=== PATIENT | female | born 1945 | race Caucasian/White ===

== ENCOUNTER → 2018-03-04 08:57 | Outpatient (CLI) | payer MEDICARE, SELFPAY ==
--- NOTE | 2018-03-04 08:59 | DI.US.S_ITS ---
PROCEDURE: US THYROID INDICATIONS: H/O THYROID NODULES TECHNIQUE: Real-time scanning was performed of the thyroid gland, with image documentation. COMPARISON: [facility], [place], THYROID, 08/17/2014, 10:12. [facility], [place]ROID, 11/13/2013, 13:19. FINDINGS: Right: The right thyroid lobe measures 1.6 x 2.0 x 4.6 cm. In 3 new thyroid nodules are present measuring 4 x 6 x 6 mm and 4 x 6 x 7 mm at the middle third of the gland and 8 x 9 x 13 mm at the lower third of the gland. Previously present middle third nodules have not significantly changed measuring 4 x 8 x 10 mm and 5 x 6 x 7 mm. Left: The left thyroid lobe measures 2.4 x 3.5 x 5.1 cm. A 9 x 11 x 14 mm upper third nodule has not changed. The 2 previously biopsied nodules at the middle and lower third of the gland measure 13 x 24 x 24 mm and 21 x 26 x 32 mm respectively. Isthmus: Isthmus contains 2 small additional nodules measuring 3 x 6 x 7 mm and 3 x 6 x 6 mm. IMPRESSION: 2 right-sided previously present nodules are again seen, 3 new right-sided nodules are present as discussed. At the Isthmus 2 small new nodules are present. Within the left thyroid lobe the previously biopsied lower to nodules have not significantly changed in the upper third nodule which is smaller has not significantly changed. Dictated by: Syd Schmitt M.D. on 03/04/2018 at 13:10 Approved by: Syd Schmitt M.D. on 03/04/2018 at 13:14
[2018-03-04 09:36] LABS: Add Manual Diff / Slide Review NO; Basophils Percent Auto 1.5 % (0-2); Eosinophils Percent Auto 2.5 % (2-4); Hematocrit 40.7 % (36-46); Lymphocytes Percent Auto 34.5 % (25-40); Mean Corpuscular HGB Conc 34.4 % (30-36); Mean Corpuscular Hemoglobin 32.1 PG (26-34); Mean Corpuscular Volume 93.2 fL (80-100); Monocytes Percent Auto 8.6 % (3-14); Neutrophils Absolute Auto 2000 /uL (3000-5900); Neutrophils Percent Auto 52.9 % (50-75); Platelet Count 157 X10^3/uL (150-400); Red Blood Cell Count 4.37 X10^6/uL (4.0-5.2); Red Cell Distribution Width 12.8 % (11.6-14.8); White Blood Cell Count 3.8 X10^3/uL (4.5-11.0)
[2018-03-04 09:57] LABS: Alanine Aminotransferase 23 IU/L (9-52); Albumin 4.4 g/dL (3.5-5.0); Albumin Globulin Ratio 1.4 (1.0-2.8); Alkaline Phosphatase 72 U/L (38-126); Aspartate Aminotransferase 24 IU/L (14-36); BUN Creatinine Ratio 27.1 (6-22); Bilirubin Total 1.8 mg/dL (0.2-1.3); Blood Urea Nitrogen 19 mg/dL (7-17); Calcium 9.3 mg/dL (8.4-10.2); Carbon Dioxide 27 mmol/L (22-32); Chloride 104 mmol/L (98-107); Cholesterol 206 mg/dL (140-199); Estimated Glomerular Filt Rate > 60.0 mL/min (>60); Globulin 3.2 g/dL (1.7-4.1); Glucose 96 mg/dL (80-110); HDL Cholesterol 58 mg/dL (40-60); HEMOLYSIS < 15 (0-50); LDL Cholesterol Calculated 137 mg/dL (<100); Potassium 4.4 mmol/L (3.4-5.1); Sodium 143 mmol/L (137-145); Total Protein 7.6 g/dL (6.3-8.2); Triglycerides 53 mg/dL (35-150)
[2018-03-04 10:24] LABS: Free T3, Triiodothyronine Free 2.81 pg/mL (2.77-5.27); Free T4, Direct Thyroxine 1.01 ng/dL (0.78-2.19)
[2018-03-04 10:38] LABS: Thyroid Stimulating Hormone 2.05 uIU/mL (0.47-4.68)
[2018-03-06 16:05] LABS: Thyroid Peroxidase Antibodies 65 IU/mL (< 9)
== END ==
PROVIDERS: PCP Family Medicine; Visit Provider Internal Medicine
DX: E04.2 Nontoxic multinodular goiter (principal); Z86.2 Personal history of diseases of the blood and blood-forming organs and certain disorders involving the immune mechanism; Z86.39 Personal history of other endocrine, nutritional and metabolic disease
CPT/HCPCS: 36415; 76536; 80053; 80061; 84439; 84443; 84481; 85025; 86376

== ENCOUNTER → 2018-09-28 11:44 | Outpatient (CLI) | payer MEDICARE, SELFPAY ==
--- NOTE | 2018-09-28 12:00 | DI.RAD.S_ITS ---
PROCEDURE: XR FOOT LT MIN 3V INDICATIONS: left foot pain TECHNIQUE: 3 views of the foot were acquired. COMPARISON: None. FINDINGS: Bones: No fractures or dislocations. No suspicious bony lesions. Soft tissues: No tibiotalar joint effusion. Achilles tendon appears normal. IMPRESSION: No acute fracture. No osseous lesion. If symptoms or clinical suspicion for pathology persists, repeat plain films, or advanced imaging (CT, bone scan, or MRI) may be helpful for further assessment. Dictated by: Lloyd Fatima M.D. on 09/28/2018 at 11:15 Approved by: Lloyd Fatima M.D. on 09/28/2018 at 11:16
== END ==
PROVIDERS: PCP Family Medicine; Visit Provider Physician Assistant
DX: M79.672 Pain in left foot (principal)
CPT/HCPCS: 73630

== ENCOUNTER → 2018-11-01 12:34 | Outpatient (CLI) | payer MEDICARE, SELFPAY | PROVIDERS: PCP Family Medicine; Visit Provider Family Medicine | DX: M85.852 Other specified disorders of bone density and structure, left thigh (principal); M85.851 Other specified disorders of bone density and structure, right thigh; Z78.0 Asymptomatic menopausal state | CPT/HCPCS: 77080 ==

== ENCOUNTER → 2018-12-18 11:12 | Outpatient (CLI) | payer MEDICARE, SELFPAY ==
[2018-12-18 12:09] LABS: Basophils Absolute Auto 0 /uL (0-100); Eosinophils Absolute Auto 100 /uL (0-450); Eosinophils Percent Auto 1.8 % (2-4); Lymphocytes Absolute Auto 1600 /uL (1100-4500); Lymphocytes Percent Auto 35.6 % (25-40); Mean Corpuscular HGB Conc 33.4 % (30-36); Mean Corpuscular Hemoglobin 31.6 PG (26-34); Mean Corpuscular Volume 94.6 fL (80-100); Monocytes Absolute Auto 300 /uL (0-900); Monocytes Percent Auto 7.3 % (3-14); Neutrophils Absolute Auto 2400 /uL (1500-7000); Neutrophils Percent Auto 54.3 % (50-75); Platelet Count 148 X10^3/uL (150-400); Red Blood Cell Count 4.44 X10^6/uL (4.0-5.2); Red Cell Distribution Width 12.5 % (11.6-14.8); White Blood Cell Count 4.4 X10^3/uL (4.5-11.0)
[2018-12-18 12:10] LABS: Add Manual Diff / Slide Review SLIDE REVIEW
[2018-12-18 12:13] LABS: Alanine Aminotransferase 26 IU/L (9-52); Albumin 4.5 g/dL (3.5-5.0); Albumin Globulin Ratio 1.4 (1.0-2.8); Alkaline Phosphatase 77 U/L (38-126); Aspartate Aminotransferase 33 IU/L (14-36); BUN Creatinine Ratio 34.3 (6-22); Bilirubin Total 1.7 mg/dL (0.2-1.3); Blood Urea Nitrogen 24 mg/dL (7-17); Calcium 9.8 mg/dL (8.4-10.2); Carbon Dioxide 27 mmol/L (22-32); Chloride 102 mmol/L (98-107); Estimated Glomerular Filt Rate > 60.0 mL/min (>60); Globulin 3.3 g/dL (1.7-4.1); Glucose 99 mg/dL (80-110); HEMOLYSIS < 15 (0-50); Potassium 4.4 mmol/L (3.4-5.1); Sodium 140 mmol/L (137-145); Total Protein 7.8 g/dL (6.3-8.2)
[2018-12-18 12:44] LABS: TSH w/ Reflex to FT4 1.41 uIU/mL (0.47-4.68)
[2018-12-18 12:53] LABS: RBC Morphology Normal Morphology
[2018-12-18 17:38] LABS: Vitamin D 25 Hydroxy (D3) 32.8 ng/mL (30.0-100.0)
== END ==
PROVIDERS: PCP Family Medicine; Visit Provider Family Medicine
DX: M81.0 Age-related osteoporosis without current pathological fracture (principal); E04.2 Nontoxic multinodular goiter
CPT/HCPCS: 36415; 80053; 82306; 84443; 85025

== ENCOUNTER → 2020-08-27 08:08 | Outpatient (CLI) | payer MEDICARE, SELFPAY ==
[2020-08-27 09:00] LABS: Add Manual Diff / Slide Review NO; Basophils Absolute Auto 100 /uL (0-100); Basophils Percent Auto 1.9 % (0-2); Eosinophils Absolute Auto 100 /uL (0-450); Eosinophils Percent Auto 3.9 % (2-4); Hematocrit 39.1 % (36-46); Hemoglobin 12.9 g/dL (12.0-16.0); Lymphocytes Absolute Auto 1300 /uL (1100-4500); Lymphocytes Percent Auto 41.9 % (25-40); Mean Corpuscular HGB Conc 32.9 % (30-36); Mean Corpuscular Hemoglobin 31.2 PG (26-34); Mean Corpuscular Volume 94.8 fL (80-100); Monocytes Absolute Auto 300 /uL (0-900); Monocytes Percent Auto 9.5 % (3-14); Neutrophils Absolute Auto 1400 /uL (1500-7000); Neutrophils Percent Auto 42.8 % (50-75); Platelet Count 120 X10^3/uL (150-400); Red Blood Cell Count 4.12 X10^6/uL (4.0-5.2); Red Cell Distribution Width 12.9 % (11.6-14.8); White Blood Cell Count 3.2 X10^3/uL (4.5-11.0)
[2020-08-27 09:48] LABS: Alanine Aminotransferase 17 IU/L (<35); Albumin Globulin Ratio 1.4 (1.0-2.8); Alkaline Phosphatase 59 U/L (38-126); Aspartate Aminotransferase 29 IU/L (14-36); BUN Creatinine Ratio 23.2 (6-22); Blood Urea Nitrogen 16 mg/dL (7-17); Calcium 9.2 mg/dL (8.4-10.2); Carbon Dioxide 30 mmol/L (22-32); Chloride 103 mmol/L (98-107); Cholesterol 171 mg/dL (140-199); Estimated Glomerular Filt Rate > 60.0 mL/min (>60); Globulin 2.9 g/dL (1.7-4.1); Glucose 95 mg/dL (80-110); HDL Cholesterol 60 mg/dL (40-60); HEMOLYSIS < 15 (0-50); LDL Cholesterol Calculated 102 mg/dL (<100); Sodium 138 mmol/L (137-145); Total Protein 6.9 g/dL (6.3-8.2); Triglycerides 45 mg/dL (35-150)
== END ==
PROVIDERS: PCP Family Medicine; Referring Provider Family Medicine; Visit Provider Family Medicine
DX: E06.3 Autoimmune thyroiditis (principal); D69.6 Thrombocytopenia, unspecified; D72.819 Decreased white blood cell count, unspecified
CPT/HCPCS: 36415; 80053; 80061; 85025

== ENCOUNTER → 2020-10-01 10:26 | Outpatient (CLI) | payer MEDICARE, SELFPAY ==
--- NOTE | 2020-10-01 10:31 | DIET.PN ---
Dietary Progress Note Assessment: 74y F referred to nutrition for help with bloating, constipation, and relaxing the elimination diet she has been following for the past 1.5y on recc of her PCP Khai. Pt Goal: to be able to walk socially with friends without having gas. Pt has a lot of constipation during whole life Sx: within 2-3h of eating offending food, gas starts to build up in stomach, flatulence, often goes days without BM Pt takes 240mg stool softener daily Apr 10, 2019 began elimination diet. Continued to now secondary to covid concerns and not wanting to be a bother to overstressed hospital system. Pt frequently takes beano, lactaid, gas-x (strongest formulation) avoids beans, corn, cruciferous, most fruits and grains including oats drinks 1 cup coffee, 10 glasses water, and herbal tea daily Acceptable Food List: protein foods: chicken, fish, red meat, ham, turkey, mixed nuts (peanuts), mixed nut butter, pistachios?, fruit: oranges, bananas, blueberries, sometimes cantaloupe vegetables: adames peppers, mushrooms, leafy greens, zucchini, cucumbers, tomatoes, avocado, carrots, sweet potatoes, potatoes, squash, green beans, asparagus grain: rice crackers or rice cake, rice, hasn't tried quinoa, corn tortilla Does not hurry when eating, not stressed when eating, chews food well Pt walks 2mi daily and does weight training 3x/w Usual Day: B: 1 c unsweet almond milk, 1/2 banana, 1/2 cup blueberries, 1 c spinach c 2 rice cakes and cup coffee L: deli meat c rice crackers, carrots, orange, slices adames pepper or zucchini D: chicken c salad c sweet potato or regular potato HT: 5'5 WT: 138# Nutrition Diagnosis: 1. poor nutrition quality of life r/t restrictive diet c breakthrough symptoms aeb pt has been on restrictive elimination diet x1.5y prolonged due to global pandemic, pt eating fewer than 50 foods, pt has had lifelong constipation and debilitating bloating/flatulence, pt unable to eat recreationally with others or walk socially secondary to fear of sx and sx manifestation. 2. altered GI function r/t likely intolerance to variety of sugar and fiber types aeb pt reports lifelong constipation reliant on stool softeners, pt has debilitating bloating and flatulence, pt trialing restrictive elimination diet and digestive enzyme routine with moderate sx relief. RD Impression: Pt shows signs of IBS-c and likely some other concurrent intolerance (possibly sucrase isomaltase deficiency, sulfur). Pt has been on restrictive elimination that mostly manages her sx but pt not feeling comfortable social eating or exercising for fear of sx development and manifestation (states, this is embarrassing, others don't need to know my business). Pt willing to be compliant with complex dietary intervention and screens low risk for disordered eating type behaviors. Goal is to systematically test foods in order to make diet as liberal as possible while maintaining low sx manifestations. Pt may need broad digestive enzyme therapy or targeted (sucraid) and may benefit from supplementing with magnesium citrate for better stooling. Will defer to PCP regarding any new supplementation. Interventions: 1. To address sx and lifting restrictive diet, using handout, educated pt on low-FODMAP foods including the food categories, which are low, moderate, and high, with amounts that could be tolerated. Stressed importance that this is not manager intermediate diet, it is meant to systematically identify offending foods and non-offending foods. 2. Discussed protocol of reintroduction. To list top 10 foods she wants back in her diet. To test small amount of one food at a time, over 3 days. If no sx, food is safe. If sx occur, remove food for a while and retest in smaller volume at later date. Pt to journal progress throughout. 3. Discussed low-FODMAP foods which she does not tolerate including many fruits and grains including GF oats. 1/3 of IBS patients have CSID and could possibly explain this added symptomology. Pt does not tolerate sulfur containing foods- cruciferous and eggs, also blurring standard IBS sx relief. Pt instructed to avoid sufur foods for now and fruits/grains that give her trouble for now. Diet Order: low-fodmap with reintroduction phase beginning davina Monitoring/Evaluations: pt has f/u c PCP and will contact RD to schedule further f/u as needed.
== END ==
PROVIDERS: PCP Family Medicine; Referring Provider Family Medicine; Visit Provider Family Medicine
DX: R14.0 Abdominal distension (gaseous) (principal); K59.00 Constipation, unspecified; Z71.3 Dietary counseling and surveillance
CPT/HCPCS: 97802

== ENCOUNTER → 2020-12-10 15:25 | Outpatient (CLI) | payer MEDICARE, SELFPAY ==
[2020-12-14 13:36] LABS: Fecal Immunochemical Test Negative (Negative)
== END ==
PROVIDERS: PCP Family Medicine; Referring Provider Family Medicine; Visit Provider Family Medicine
DX: Z12.11 Encounter for screening for malignant neoplasm of colon (principal)
CPT/HCPCS: 82274

== ENCOUNTER → 2023-08-17 12:26 | Outpatient (CLI) | payer MEDICARE, SELFPAY ==
--- NOTE | 2023-08-17 12:30 | DI.US.S_ITS ---
PROCEDURE: US THYROID INDICATIONS: FOLLOW-UP NODULES TECHNIQUE: Real-time scanning was performed of the thyroid gland, with image documentation. COMPARISON: [facility], [place], US THYROID, 03/04/2018, 9:58. FINDINGS: Thyroid: Right lobe measures 4.8 x 2.4 x 1.7 cm. Left lobe measures 4.9 x 2.2 x 3.4 cm. Isthmus is 5 cm thick. Echotexture is homogeneous. Nodule number: 1 Location: Posterior mid right lobe Size: 2.1 x 1.3 x 1.6 cm compared to 1.3 x 0.9 x 0.8 cm. Composition: Solid Echogenicity: Hypoechoic Shape: wider than tall. Margins: Smooth Echogenic foci: None Total points: 4 ACR TI-RADS category: 4 Nodule number: 2 Location: Left inferior Size: 3.4 x 2.3 x 3.4 cm compared to 3.2 x 2.1 x 2.6 cm. Composition: Solid Echogenicity: Hypoechoic Shape: wider than tall. Margins: Smooth Echogenic foci: None Total points: 4 ACR TI-RADS category: 4 Nodule number: 3 Location: Medial left Size: 2.7 x 1.5 x 2.7 cm compared to 2.4 x 1.3 x 2.4 cm. Composition: Solid Echogenicity: Hypoechoic Shape: wider than tall. Margins: Smooth Echogenic foci: None Total points: 4 ACR TI-RADS category: 4 Nodule number: 4 Location: Anterior right Size: 1.0 by 0.5 x 0.8 cm. Composition: Solid Echogenicity: Hypoechoic Shape: wider than tall. Margins: Smooth Echogenic foci: None Total points: 4 ACR TI-RADS category: 4 IMPRESSION: Lesions 1 through 3 are relatively stable noting minimal interval increase in size of lesion 3. [place] annual follow-up is recommended. Lesion 4 is new. Secondary to size, annual follow-up is recommended. ACR TI-RADS definitions and recommendations: TI-RADS 1 (benign): 0 points. FNA not needed. TI-RADS 2 (not suspicious): 2 points. FNA not needed. TI-RADS 3 (mildly suspicious): 3 points. * FNA if 2.5 cm or larger, follow up if 1.5 cm or larger (at 1, 3, and 5 years). TI-RADS 4 (moderately suspicious): 4-6 points. * FNA if 1.5 cm or larger, follow up if 1 cm or larger (at 1, 2, 3, and 5 years). TI-RADS 5 (highly suspicious): 7 points or more. * FNA if 1 cm or larger, follow up if 0.5 cm or larger (every year for 5 years). Dictated by: Karoline Corral M.D. on 08/17/2023 at 17:18 Approved by: Karoline Corral M.D. on 08/17/2023 at 17:20
--- NOTE | 2023-08-17 12:30 | DI.RAD.S_ITS ---
PROCEDURE: XR DEXA AXIAL SKELETON INDICATIONS: bone density screening COMPARISON: [facility], [place], XR DEXA AXIAL SKELETON, 11/01/2018, 13:05. FINDINGS: Lumbar Spine: Bone mineral density 0.946 g/cm2, T score -0.3, compared to -0.7. Left Hip: Bone mineral density 0.719 g/cm2, T score -1.8, compared to -1.7. Left Femoral Neck: Bone mineral density 0.634 g/cm2, T score -1.9, compared to -1.6. Fracture Risk Calculation (when applicable): 10-year fracture risk of a major osteoporotic fracture 14% and of a hip fracture 3.6%, compared to 14.1% 3.5% respectively on prior exam. (T score greater or equal to -1.0 to: NORMAL) (T score from -1.1 to -2.4: OSTEOPENIA) (T score less than or equal to -2.5: OSTEOPOROSIS) IMPRESSION: Relatively stable appearance of osteopenia in the left hip and femoral neck with minimal interval progression in the femoral neck. Follow-up guidelines as follows: Osteoporosis: Consider a repeat DEXA and Vertebral Fracture Assessment (VFA) exam in 2 years or sooner if medically necessary, to reassess this patient's status. Osteopenia: Consider a repeat DEXA in 2-3 years to reassess this patient's status, or if there is a new clinical indication. Normal: Consider a repeat DEXA in 5 years or sooner, or if there is a new clinical indication. Dictated by: Karoline Corral M.D. on 08/20/2023 at 12:02 Approved by: Karoline Corral M.D. on 08/20/2023 at 12:06
[2023-08-17 14:12] LABS: Add Manual Diff / Slide Review NO; Basophils Absolute Auto 0 /uL (0-100); Eosinophils Absolute Auto 100 /uL (0-450); Eosinophils Percent Auto 1.9 % (2-4); Hematocrit 40.5 % (36-46); Hemoglobin 13.5 g/dL (12.0-16.0); Lymphocytes Absolute Auto 1300 /uL (1100-4500); Lymphocytes Percent Auto 28.2 % (25-40); Mean Corpuscular HGB Conc 33.4 % (30-36); Mean Corpuscular Hemoglobin 31.4 PG (26-34); Mean Corpuscular Volume 93.9 fL (80-100); Monocytes Absolute Auto 400 /uL (0-900); Monocytes Percent Auto 7.8 % (3-14); Neutrophils Absolute Auto 2800 /uL (1500-7000); Neutrophils Percent Auto 61.1 % (50-75); Platelet Count 128 X10^3/uL (150-400); Red Blood Cell Count 4.31 X10^6/uL (4.0-5.2); Red Cell Distribution Width 12.7 % (11.6-14.8); White Blood Cell Count 4.7 X10^3/uL (4.5-11.0)
[2023-08-17 14:26] LABS: Hemoglobin A1C% w Est Avg Glu 5.7 % (4.0-6.0)
[2023-08-17 14:51] LABS: Alanine Aminotransferase 17 IU/L (<35); Albumin 4.6 g/dL (3.5-5.0); Albumin Globulin Ratio 1.5 (1.0-2.8); Alkaline Phosphatase 66 U/L (38-126); Aspartate Aminotransferase 27 IU/L (14-36); BUN Creatinine Ratio 21.4 (6-22); Bilirubin Total 1.9 mg/dL (0.2-1.3); Blood Urea Nitrogen 15 mg/dL (7-17); Calcium 9.4 mg/dL (8.4-10.2); Carbon Dioxide 24 mmol/L (22-32); Chloride 107 mmol/L (98-107); Estimated Glomerular Filt Rate > 60 mL/min (>60); Glucose 99 mg/dL (80-110); HEMOLYSIS < 15 (0-50); Sodium 138 mmol/L (137-145); Total Protein 7.6 g/dL (6.3-8.2)
[2023-08-17 15:04] LABS: Free T3, Triiodothyronine Free 3.26 pg/mL (2.77-5.27); Free T4, Direct Thyroxine 1.56 ng/dL (0.78-2.19)
[2023-08-17 15:08] LABS: Vitamin D 25 Hydroxy (D3) 36.2 ng/mL (30.0-100.0)
[2023-08-17 15:17] LABS: Thyroid Stimulating Hormone 1.43 uIU/mL (0.47-4.68)
== END ==
PROVIDERS: PCP Family Medicine; Referring Provider Family Medicine; Visit Provider Family Medicine
DX: M85.89 Other specified disorders of bone density and structure, multiple sites (principal); R73.9 Hyperglycemia, unspecified; E04.2 Nontoxic multinodular goiter; E06.3 Autoimmune thyroiditis; D69.6 Thrombocytopenia, unspecified; D72.819 Decreased white blood cell count, unspecified
CPT/HCPCS: 36415; 76536; 77080; 80053; 82306; 83036; 84439; 84443; 84481; 85025